=== PATIENT | male | born 1995 | race Caucasian/White ===

== ENCOUNTER 2018-11-23 10:53 | Emergency (ER) | payer MEDICAID ==
[2018-11-23] MEDS: NAPROXEN 500 MG TAB PO (11:47)
== END 2018-11-23 11:50 | disposition home or self-care (01) ==
LOC: FTE 11:50
DX: S86.912A Strain of unspecified muscle(s) and tendon(s) at lower leg level, left leg, initial encounter (principal); V13.4XXA Pedal cycle driver injured in collision with car, pick-up truck or van in traffic accident, initial encounter
CPT/HCPCS: 99282; Z7502